=== PATIENT | female | born 1995 | race African-American/Black ===

== ENCOUNTER 2022-07-07 05:49 | Emergency (ER) | payer BC ==
[~2022-07-07] VITALS: Ht 170.2 cm; Wt 87.1 kg
[2022-07-07] MEDS ORDERED: ACETAMINOPHEN500 MG PO (06:19)
== END 2022-07-07 08:00 | disposition home or self-care (01) ==
LOC: FSED 06:09
DX: O26.892 Other specified pregnancy related conditions, second trimester (principal); W50.0XXA Accidental hit or strike by another person, initial encounter; Y99.0 Civilian activity done for income or pay
CPT/HCPCS: 76805; 76817; 99283